=== PATIENT | male | born 1965 | race African-American/Black ===

== ENCOUNTER 2017-09-05 11:31 | Inpatient (IN) | payer OTHER ==
[2017-09-05 12:02] VITALS: BMI 21.3
--- NOTE | 2017-09-05 14:13 | HP ---
CIWA Score - CIWA Score Nausea/Vomitin Muscle Tremors: 3 Anxiety: 3 Agitation: 3 Paroxysmal Sweats: 2 Orientation: 0-Oriented Tacttile Disturbances: 1-Very Mild Itch/Numbness Auditory Disturbances: 1-Very Mild Visual Disturbances: 0-None Headache: 2-Mild CIWA-Ar Total Score: 18 Admission ROS BHS - HPI Chief Complaint: i need help to stop drinking alcohol Allergies/Adverse Reactions: Allergies Allergy/AdvReac Type Severity Reaction Status Date / Time No Known Allergies Allergy Verified 09/05/17 12:38 History of Present Illness: this 51 yers old male with alcohol dependence,seeking detox,withdrawal symptom, last detox in 2012 [place] nicotine dependence weight loss anxiety,depression,insomnia longest period of sobriety 1 year - Ebola screening Have you traveled outside of the country in the last 21 days: No Have you had contact with anyone from an Ebola affected area: No Have you been sick,other than usual withdrawal symptoms: No Do you have a fever: No - Review of Systems Constitutional: Loss of Appetite, Malaise, Night Sweats, Changes in sleep, Weakness, Unintentional Wgt. Loss EENT: reports: Tearing, Nose Congestion Respiratory: reports: No Symptoms reported Cardiac: reports: No Symptoms Reported GI: reports: Diarrhea, Nausea, Vomiting, Abdominal cramping : reports: No Symptoms Reported Musculoskeletal: reports: Back Pain, Muscle Pain Integumentary: reports: Dryness Hematology: reports: No Symptoms Reported Psychiatric: reports: No Sypmtoms Reported, Judgement Intact, Mood/Affect Appropiate, Orientated x3, Agitated, Anxious Patient History - Patient Medical History Hx Anemia: No Hx Asthma: No Hx Chronic Obstructive Pulmonary Disease (COPD): No Hx Cancer: No Hx Cardiac Disorders: No Hx Congestive Heart Failure: No Hx Hypertension: No Hx Hypercholesterolemia: No Hx Pacemaker: No HX Cerebrovascular Accident: No Hx Seizures: No Hx Dementia: No Hx Diabetes: No Hx Gastrointestinal Disorders: Yes (acid reflux no med) Hx Liver Disease: No Hx Genitourinary Disorders: No Hx Sexually Transmitted Disorders: No Hx Renal Disease (ESRD): No Hx Thyroid Disease: No Hx Human Immunodeficiency Virus (HIV): No (last 2016 negative) Hx Hepatitis C: No Hx Depression: Yes (anxiety) Hx Suicide Attempt: No Hx Bipolar Disorder: No Hx Schizophrenia: No Other Medical History: no suicidal,no homicidal,insomnia - Patient Surgical History Past Surgical History: No Hx Neurologic Surgery: No Hx Cataract Extraction: No Hx Cardiac Surgery: No Hx Lung Surgery: No Hx Breast Surgery: No Hx Breast Biopsy: No Hx Abdominal Surgery: No Hx Appendectomy: No Hx Cholecystectomy: No Hx Genitourinary Surgery: No Hx Section: No Hx Orthopedic Surgery: No Anesthesia Reaction: No - PPD History Previous Implant?: Yes Documented Results: Negative w/o proof Implanted On Prior [facility] Admission?: No PPD to be Administered?: Yes - Smoking Cessation Smoking history: Current every day smoker Have you smoked in the past 12 months: Yes Aproximately how many cigarettes per day: 20 Hx Chewing Tobacco Use: No Initiated information on smoking cessation: Yes 'Breaking Loose' booklet given: 09/05/17 - Substance & Tx. History Hx Alcohol Use: Yes Hx Substance Use: No Substance Use Type: Alcohol Hx Substance Use Treatment: Yes (2012) - Substances Abused Alcohol-beer/vodka Route: Oral Frequency: Daily Amount used: 2-6 pks./1 pt. Age of first use: 16 Date of Last Use: 09/04/17 Family Disease History - Family Disease History Family History: Denies Admission Physical Exam BHS - Vital Signs Vital Signs: Vital Signs - 24 hr 09/05/17 12:00 Temperature 97.8 F Pulse Rate 109 H Respiratory 18 Rate Blood Pressure 123/78 - Physical General Appearance: Yes: Moderate Distress, Tremorous, Irritable, Sweating, Anxious HEENTM: Yes: Normal ENT Inspection, FELIPE, Pharynx Normal Respiratory: Yes: Lungs Clear, Normal Breath Sounds, No Respiratory Distress Neck: Yes: Within Normal Limits, Supple, Trachea in good position Breast: Yes: Within Normal Limits Cardiology: Yes: Within Normal Limits, Regular Rhythm, Regular Rate, S1, S2 Abdominal: Yes: Within Normal Limits, Normal Bowel Sounds, Non Tender, Flat, Soft Genitourinary: Yes: Within Normal Limits Back: Yes: Muscle Spasm Musculoskeletal: Yes: Within Normal Limits, Back pain, Muscle Pain Extremities: Yes: Tremors Neurological: Yes: med spa manager II-XII NML intact, Alert, Motor Strength 5/5 Integumentary: Yes: Dry Lymphatic: Yes: Within Normal Limits - Diagnostic (1) Alcohol dependence with uncomplicated withdrawal Current Visit: Yes Status: Acute (2) Dehydration Current Visit: Yes Status: Acute (3) Syncope Current Visit: Yes Status: Acute (4) Nicotine dependence Current Visit: Yes Status: Acute Qualifiers: Nicotine product type: cigarettes Substance use status: uncomplicated Qualified Code(s): F17.210 - Nicotine dependence, cigarettes, uncomplicated (5) Weight loss Current Visit: Yes Status: Acute Cleared for Admission S - Detox or Rehab S Level of Care: Medically Managed Detox Regimen/Protocol: Librium BHS Breath Alcohol Content Breath Alcohol Content: 4 Urine Drug Screen - Results Drug Screen Negative: No
[2017-09-05] MEDS ORDERED: ACETAMINOPHEN 325 MG TABLET (FP) PO PRN (14:20)
[2017-09-05] MEDS ORDERED: guaiFENesin/D-METHORPHAN HB 10 ML UNIT-DOSE CUPS PO PRN (14:20)
[2017-09-05] MEDS ORDERED: MAGNESIUM HYDROX 2400MG/30ML ORAL SUSPENSION 30 ML CUP PO PRN (14:20)
[2017-09-05] MEDS ORDERED: MAG HYDROX/AL HYDROX/SIMETH 30 ML UNIT-DOSE CUP PO PRN (14:20)
[2017-09-05] MEDS ORDERED: NICOTINE POLACRILEX 2 MG GUM BUC PRN (14:20)
[2017-09-05] MEDS ORDERED: IBUPROFEN 400 MG TABLET (FP) PO PRN (14:20)
[2017-09-05] MEDS ORDERED: P-EPHED 60MG/TRIPROLIDI 2.5MG TABLET PO PRN (14:20)
[2017-09-05] MEDS ORDERED: MAGNESIUM CITRATE 300 ML BOTTLE PO PRN (14:20)
[2017-09-05] MEDS ORDERED: MENTHOL/PHENOL 1 EACH UD MM PRN (14:20)
[2017-09-05] MEDS ORDERED: LOPERAMIDE HCL 2 MG CAPSULE PO PRN (14:20)
[2017-09-05] MEDS: chlordiazePOXIDE HCL 25 MG CAPSULE PO PRN (15:33)
--- NOTE | 2017-09-05 16:15 | CONSULT ---
[facility] Psychiatric Consult - Data Date of interview: 09/05/17 Admission source: [facility] Identifying data: Patient is a 51 year old male, single, father of five, domiciled (lives with partner), and is currently unemployed. This is one of multiple admissions for patient. Pt. admitted to for alcohol dependence. Substance Abuse History: Smoking Cessation. Smoking history: Current every day smoker. Have you smoked in the past 12 months: Yes. Aproximately how many cigarettes per day: 20. Hx Chewing Tobacco Use: No. Initiated information on smoking cessation: Yes. 'Breaking Loose' booklet given: 09/05/17. - Substance & Tx. History. Hx Alcohol Use: Yes. Hx Substance Use: No. Substance Use Type : Alcohol. Hx Substance Use Treatment: Yes (2012). - Substances Abused. Alcohol-beer/vodka. Route: Oral. Frequency: Daily. Amount used: 2 -6 pks./1 pt. Age of first use: 16. Date of Last Use: 09/04/17 Medical History: Acid reflux Psychiatric History: Patient's first encounter with a psychiatrist was at the age of 31 at [facility]. Pt. states he was taken to [facility] emergency room after becoming intoxicated and menancing. Pt. was admitted to [facility] and diagnosed with bipolar disorder. Pt. was started on seroquel but reports only taking the medication during hospitalization. Patient's second hospitalization was two months ago at [facility] after becoming intoxicated and acting erractic. Pt. reports nonadhernece to outpatient care. Pt. denies h/o suicide attempt. Physical/Sexual Abuse/Trauma History: Denies. Mental Status Exam - Mental Status Exam Alert and Oriented to: Time, Place, Person Cognitive Function: Good Patient Appearance: Well Groomed Mood: Hopeful, Euthymic Affect: Mood Congruent Patient Behavior: Cooperative Speech Pattern: Pressured Voice Loudness: Normal Thought Process: Intact, Goal Oriented Thought Disorder: Not Present Hallucinations: Denies Suicidal Ideation: Denies Homicidal Ideation: Denies Insight/Judgement: Poor Sleep: Poorly Muscle strength/Tone: Normal Gait/Station: Normal Psychiatric Findings - Problem List ([place] 1, 2,3) (1) Substance-induced sleep disorder Current Visit: Yes Status: Acute (2) Alcohol dependence with uncomplicated withdrawal Current Visit: Yes Status: Acute (3) Alcohol-induced mood disorder Current Visit: Yes Status: Acute (4) Nicotine dependence Current Visit: Yes Status: Acute - Initial Treatment Plan Initial Treatment Plan: Psychoeducation provided. Detoxification in progress. Seroquel 50mg qhs. Benefits and side effects discussed. Verbal consent given.
[2017-09-05] MEDS: chlordiazePOXIDE HCL 25 MG CAPSULE PO SCH ×2 (17:51→23:32)
[2017-09-05] MEDS ORDERED: MELATONIN 5 MG TABLETS PO PRN (22:00)
[2017-09-05] MEDS: QUEtiapine FUMARATE 50 MG TABLET PO SCH (23:30)
[2017-09-05] MEDS: THIAMINE HCL 100 MG TABLET (FP) PO SCH (23:31)
[2017-09-06] MEDS: hydrOXYzine PAMOATE 50 MG CAPSULE (FP) PO PRN ×2 (01:06→22:46)
[2017-09-06] MEDS: chlordiazePOXIDE HCL 25 MG CAPSULE PO PRN (01:06)
[2017-09-06] MEDS: chlordiazePOXIDE HCL 25 MG CAPSULE PO SCH ×4 (05:31→22:46)
[2017-09-06 10:10] LABS: HEMATOCRIT 40.5 % (35.4-49); HEMOGLOBIN 13.6 GM/dL (11.7-16.9); MCH 32.1 pg (25.7-33.7); MCHC 33.7 g/dl (32.0-35.9); MEAN CELL VOLUME 95.4 fl (80-96); MEAN PLT VOLUME 8.8 fl (7.5-11.1); PLATELET COUNT 218 K/MM3 (134-434); RBC 4.25 M/mm3 (4.00-5.60); RDW 12.8 % (11.9-15.9)
[2017-09-06 10:40] LABS: CHLORIDE 103 mmol/L (98-107); POTASSIUM 4.1 mmol/L (3.5-5.1); SODIUM 138 mmol/L (136-145)
[2017-09-06 10:48] LABS: ALBUMIN 3.9 g/dl (3.4-5.0); ALK PHOS 63 U/L (45-117); ANION GAP 6 (8-16); BILIRUBIN,TOTAL 0.4 mg/dL (0.2-1.0); BLOOD UREA NITROGEN 20 mg/dL (7-18); CALCIUM 9.4 mg/dL (8.5-10.1); CO2 29 mmol/L (21-32); CREATININE 1.1 mg/dL (0.7-1.3); GLUCOSE,RANDOM 103 mg/dL (74-106); SGOT/AST 48 U/L (15-37); SGPT/ALT 47 U/L (12-78); TOT PROT 8.2 g/dl (6.4-8.2)
[2017-09-06 10:51] LABS: URINE APPEARANCE TURBID; URINE BILIRUBIN NEGATIVE (<2.0 mg/dL); URINE COLOR YELLOW; URINE GLUCOSE (UA) NEGATIVE (NEGATIVE); URINE KETONE NEGATIVE (NEGATIVE); URINE LEUK ESTERASE NEGATIVE (NEGATIVE); URINE NITRITE NEGATIVE (NEGATIVE); URINE UROBILINOGEN NEGATIVE mg/dL (0.2-1.0)
[2017-09-06 10:55] LABS: URINE PROTEIN 1+ (NEGATIVE)
[2017-09-06 10:58] LABS: URINE HYALINE CAST 11 /lpf; URINE MUCUS FEW
[2017-09-06] MEDS: PRENATAL VITAMINS W/ FOLIC ACID TABLET (FP) PO SCH (10:58)
[2017-09-06] MEDS: NICOTINE 21 MG/24 HOURS TOPICAL PATCH TD SCH (11:00)
--- NOTE | 2017-09-06 11:10 | PN ---
S CIWA - CIWA Score Nausea/Vomitin Muscle Tremors: 2 Anxiety: 2 Agitation: 2 Paroxysmal Sweats: 1-Minimal Palms Moist Orientation: 0-Oriented Tacttile Disturbances: 2-Mild Itch/Numbness/Burn Auditory Disturbances: 0-None Visual Disturbances: 0-None Headache: 2-Mild CIWA-Ar Total Score: 13 BHS Progress Note (SOAP) Subjective: Back pain, sleeplessness, irritability and anxiety Objective: 09/06/17 11:09 Vital Signs 09/06/17 09/06/17 09/06/17 03:30 06:00 10:13 Temperature 97.3 F L 98.8 F Pulse Rate 73 78 Respiratory 18 18 18 Rate Blood Pressure 109/59 103/50 Laboratory Last Values WBC 6.0 K/mm3 (4.0-10.0) 09/06/17 05:30 RBC 4.25 M/mm3 (4.00-5.60) 09/06/17 05:30 Hgb 13.6 GM/dL (11.7-16.9) 09/06/17 05:30 Hct 40.5 % (35.4-49) 09/06/17 05:30 MCV 95.4 fl (80-96) 09/06/17 05:30 MCH 32.1 pg (25.7-33.7) 09/06/17 05:30 MCHC 33.7 g/dl (32.0-35.9) 09/06/17 05:30 RDW 12.8 % (11.9-15.9) 09/06/17 05:30 Plt Count 218 K/MM3 (134-434) 09/06/17 05:30 MPV 8.8 fl (7.5-11.1) 09/06/17 05:30 Sodium 138 mmol/L (136-145) 09/06/17 05:30 Potassium 4.1 mmol/L (3.5-5.1) 09/06/17 05:30 Chloride 103 mmol/L (98-107) 09/06/17 05:30 Carbon Dioxide 29 mmol/L (21-32) 09/06/17 05:30 Anion Gap 6 (8-16) L 09/06/17 05:30 BUN 20 mg/dL (7-18) H 09/06/17 05:30 Creatinine 1.1 mg/dL (0.7-1.3) 09/06/17 05:30 Creat Clearance w eGFR > 60 (>60) 09/06/17 05:30 Random Glucose 103 mg/dL (74-106) 09/06/17 05:30 Calcium 9.4 mg/dL (8.5-10.1) 09/06/17 05:30 Total Bilirubin 0.4 mg/dL (0.2-1.0) 09/06/17 05:30 AST 48 U/L (15-37) H 09/06/17 05:30 ALT 47 U/L (12-78) 09/06/17 05:30 Alkaline Phosphatase 63 U/L (45-117) 09/06/17 05:30 Total Protein 8.2 g/dl (6.4-8.2) 09/06/17 05:30 Albumin 3.9 g/dl (3.4-5.0) 09/06/17 05:30 Urine Color Yellow 09/06/17 05:50 Urine Appearance Turbid 09/06/17 05:50 Urine pH 5.0 (5.0-8.0) 09/06/17 05:50 Ur Specific [place] 1.035 (1.001-1.035) 09/06/17 05:50 Urine Protein 1+ (NEGATIVE) H 09/06/17 05:50 Urine Glucose (UA) Negative (NEGATIVE) 09/06/17 05:50 Urine Ketones Negative (NEGATIVE) 09/06/17 05:50 Urine Blood 1+ (NEGATIVE) H 09/06/17 05:50 Urine Nitrite Negative (NEGATIVE) 09/06/17 05:50 Urine Bilirubin Negative (<2.0 mg/dL) 09/06/17 05:50 Urine Urobilinogen Negative mg/dL (0.2-1.0) 09/06/17 05:50 Ur Leukocyte Esterase Negative (NEGATIVE) 09/06/17 05:50 Urine WBC (Auto) None /hpf (3-5) 09/06/17 05:50 Urine RBC (Auto) 3 /hpf (0-3) 09/06/17 05:50 Hyaline Casts 11 /lpf 09/06/17 05:50 Urine Mucus Few 09/06/17 05:50 Labs noted Assessment: 07/28/18 11:09 Withdrawal sx Plan: Continue detox
[2017-09-06] MEDS: QUEtiapine FUMARATE 50 MG TABLET PO SCH (22:46)
[2017-09-06] MEDS: THIAMINE HCL 100 MG TABLET (FP) PO SCH (22:46)
[2017-09-07] MEDS: chlordiazePOXIDE HCL 25 MG CAPSULE PO SCH ×2 (05:34→10:39)
[2017-09-07] MEDS: NICOTINE 21 MG/24 HOURS TOPICAL PATCH TD SCH (10:39)
[2017-09-07] MEDS: PRENATAL VITAMINS W/ FOLIC ACID TABLET (FP) PO SCH (10:39)
--- NOTE | 2017-09-07 13:05 | PN ---
S CIWA - CIWA Score Nausea/Vomitin-No Nausea/No Vomiting Muscle Tremors: 3 Anxiety: 3 Agitation: 3 Paroxysmal Sweats: 1-Minimal Palms Moist Orientation: 0-Oriented Tacttile Disturbances: 2-Mild Itch/Numbness/Burn Auditory Disturbances: 0-None Visual Disturbances: 0-None Headache: 0-None Present CIWA-Ar Total Score: 12 BHS Progress Note (SOAP) Subjective: sweat tremor restlessness irritable anxiety Objective: 09/07/17 13:08 Vital Signs Temperature 97.0 F L 09/07/17 06:00 Pulse Rate 70 09/07/17 06:00 Respiratory Rate 18 09/07/17 06:00 Blood Pressure 100/58 09/07/17 06:00 O2 Sat by Pulse Oximetry (%) Laboratory Last Values WBC 6.0 K/mm3 (4.0-10.0) 09/06/17 05:30 RBC 4.25 M/mm3 (4.00-5.60) 09/06/17 05:30 Hgb 13.6 GM/dL (11.7-16.9) 09/06/17 05:30 Hct 40.5 % (35.4-49) 09/06/17 05:30 MCV 95.4 fl (80-96) 09/06/17 05:30 MCH 32.1 pg (25.7-33.7) 09/06/17 05:30 MCHC 33.7 g/dl (32.0-35.9) 09/06/17 05:30 RDW 12.8 % (11.9-15.9) 09/06/17 05:30 Plt Count 218 K/MM3 (134-434) 09/06/17 05:30 MPV 8.8 fl (7.5-11.1) 09/06/17 05:30 Sodium 138 mmol/L (136-145) 09/06/17 05:30 Potassium 4.1 mmol/L (3.5-5.1) 09/06/17 05:30 Chloride 103 mmol/L (98-107) 09/06/17 05:30 Carbon Dioxide 29 mmol/L (21-32) 09/06/17 05:30 Anion Gap 6 (8-16) L 09/06/17 05:30 BUN 20 mg/dL (7-18) H 09/06/17 05:30 Creatinine 1.1 mg/dL (0.7-1.3) 09/06/17 05:30 Creat Clearance w eGFR > 60 (>60) 09/06/17 05:30 Random Glucose 103 mg/dL (74-106) 09/06/17 05:30 Calcium 9.4 mg/dL (8.5-10.1) 09/06/17 05:30 Total Bilirubin 0.4 mg/dL (0.2-1.0) 09/06/17 05:30 AST 48 U/L (15-37) H 09/06/17 05:30 ALT 47 U/L (12-78) 09/06/17 05:30 Alkaline Phosphatase 63 U/L (45-117) 09/06/17 05:30 Total Protein 8.2 g/dl (6.4-8.2) 09/06/17 05:30 Albumin 3.9 g/dl (3.4-5.0) 09/06/17 05:30 Urine Color Yellow 09/06/17 05:50 Urine Appearance Turbid 09/06/17 05:50 Urine pH 5.0 (5.0-8.0) 09/06/17 05:50 Ur Specific [place] 1.035 (1.001-1.035) 09/06/17 05:50 Urine Protein 1+ (NEGATIVE) H 09/06/17 05:50 Urine Glucose (UA) Negative (NEGATIVE) 09/06/17 05:50 Urine Ketones Negative (NEGATIVE) 09/06/17 05:50 Urine Blood 1+ (NEGATIVE) H 09/06/17 05:50 Urine Nitrite Negative (NEGATIVE) 09/06/17 05:50 Urine Bilirubin Negative (<2.0 mg/dL) 09/06/17 05:50 Urine Urobilinogen Negative mg/dL (0.2-1.0) 09/06/17 05:50 Ur Leukocyte Esterase Negative (NEGATIVE) 09/06/17 05:50 Urine WBC (Auto) None /hpf (3-5) 09/06/17 05:50 Urine RBC (Auto) 3 /hpf (0-3) 09/06/17 05:50 Hyaline Casts 11 /lpf 09/06/17 05:50 Urine Mucus Few 07/28/18 05:50 RPR Titer Nonreactive (NONREACTIVE) 09/06/17 05:30 lab noted Assessment: 09/07/17 13:08 withdrawal sx Plan: continue detox
[2017-09-07] MEDS: chlordiazePOXIDE 5 MG CAPSULE PO SCH (18:41)
[2017-09-08] MEDS: QUEtiapine FUMARATE 50 MG TABLET PO SCH ×2 (00:03→22:13)
[2017-09-08] MEDS: chlordiazePOXIDE 5 MG CAPSULE PO SCH ×3 (00:04→10:44)
[2017-09-08] MEDS: THIAMINE HCL 100 MG TABLET (FP) PO SCH ×2 (00:04→22:13)
[2017-09-08] MEDS: PRENATAL VITAMINS W/ FOLIC ACID TABLET (FP) PO SCH (10:44)
[2017-09-08] MEDS: NICOTINE 21 MG/24 HOURS TOPICAL PATCH TD SCH (10:45)
--- NOTE | 2017-09-08 11:10 | EKG ---
Test Reason : Blood Pressure : / mmHG Vent. Rate : 089 BPM Atrial Rate : 089 BPM P-R Int : 140 ms QRS Dur : 084 ms QT Int : 348 ms P-R-T Axes : 073 068 034 degrees QTc Int : 423 ms NORMAL SINUS RHYTHM POSSIBLE LEFT ATRIAL ENLARGEMENT BORDERLINE ECG NO PREVIOUS ECGS AVAILABLE Confirmed by EMMANUEL BLANKENSHIP, CELESTE ([id number]) on 09/08/2017 11:10:13 AM Referred By: Confirmed By:CELESTE BENITEZ MD
--- NOTE | 2017-09-08 12:36 | PN ---
S Progress Note (SOAP) Subjective: alert,irritable,anxious,interrupted sleep Objective: 09/08/17 12:35 Vital Signs Temperature 97.7 F 09/08/17 09:00 Pulse Rate 74 09/08/17 09:00 Respiratory Rate 18 09/08/17 09:00 Blood Pressure 113/78 09/08/17 09:00 O2 Sat by Pulse Oximetry (%) Assessment: 09/08/17 12:35 withdrawal symptom Plan: continue detox,discharge in am
[2017-09-08] MEDS: chlordiazePOXIDE HCL 10 MG CAPSULE PO SCH ×2 (17:37→22:13)
[2017-09-09] MEDS: chlordiazePOXIDE HCL 10 MG CAPSULE PO SCH ×2 (06:42→10:27)
[2017-09-09 09:48] VITALS: BP 112/72; PULSE 80; TEMP 96.4
--- NOTE | 2017-09-09 09:53 | PN ---
S Progress Note (SOAP) Subjective: alert,no complaint Objective: 09/09/17 09:49 Vital Signs Temperature 96.4 F L 09/09/17 09:47 Pulse Rate 80 09/09/17 09:47 Respiratory Rate 18 09/09/17 09:47 Blood Pressure 112/72 09/09/17 09:47 O2 Sat by Pulse Oximetry (%) Assessment: 09/09/17 09:49 detox completed,no withdrawal symptom Plan: discharge today,follow up with [facility] as arrangement
--- NOTE | 2017-09-09 09:59 | DS ---
[facility] Summary Admission Date: 09/05/17 Discharge Date: 09/09/17 - History Present History: Alcohol Dependence Additional Comments: follow up with after care program as arrangement Pertinent Past History: nicotine dependence - Physical Exam Results Vital Signs: Vital Signs Temperature 96.4 F L 09/09/17 09:47 Pulse Rate 80 09/09/17 09:47 Respiratory Rate 18 09/09/17 09:47 Blood Pressure 112/72 09/09/17 09:47 O2 Sat by Pulse Oximetry (%) Pertinent Admission Physical Exam Findings: withdrawal signs and symptom Vital Signs Temperature 96.4 F L 09/09/17 09:47 Pulse Rate 80 09/09/17 09:47 Respiratory Rate 18 09/09/17 09:47 Blood Pressure 112/72 09/09/17 09:47 O2 Sat by Pulse Oximetry (%) Laboratory Last Values WBC 6.0 K/mm3 (4.0-10.0) 09/06/17 05:30 RBC 4.25 M/mm3 (4.00-5.60) 09/06/17 05:30 Hgb 13.6 GM/dL (11.7-16.9) 09/06/17 05:30 Hct 40.5 % (35.4-49) 09/06/17 05:30 MCV 95.4 fl (80-96) 09/06/17 05:30 MCH 32.1 pg (25.7-33.7) 09/06/17 05:30 MCHC 33.7 g/dl (32.0-35.9) 09/06/17 05:30 RDW 12.8 % (11.9-15.9) 09/06/17 05:30 Plt Count 218 K/MM3 (134-434) 09/06/17 05:30 MPV 8.8 fl (7.5-11.1) 09/06/17 05:30 Sodium 138 mmol/L (136-145) 09/06/17 05:30 Potassium 4.1 mmol/L (3.5-5.1) 09/06/17 05:30 Chloride 103 mmol/L (98-107) 09/06/17 05:30 Carbon Dioxide 29 mmol/L (21-32) 09/06/17 05:30 Anion Gap 6 (8-16) L 09/06/17 05:30 BUN 20 mg/dL (7-18) H 09/06/17 05:30 Creatinine 1.1 mg/dL (0.7-1.3) 09/06/17 05:30 Creat Clearance w eGFR > 60 (>60) 09/06/17 05:30 Random Glucose 103 mg/dL (74-106) 09/06/17 05:30 Calcium 9.4 mg/dL (8.5-10.1) 09/06/17 05:30 Total Bilirubin 0.4 mg/dL (0.2-1.0) 09/06/17 05:30 AST 48 U/L (15-37) H 09/06/17 05:30 ALT 47 U/L (12-78) 09/06/17 05:30 Alkaline Phosphatase 63 U/L (45-117) 09/06/17 05:30 Total Protein 8.2 g/dl (6.4-8.2) 09/06/17 05:30 Albumin 3.9 g/dl (3.4-5.0) 09/06/17 05:30 Urine Color Yellow 09/06/17 05:50 Urine Appearance Turbid 09/06/17 05:50 Urine pH 5.0 (5.0-8.0) 09/06/17 05:50 Ur Specific [place] 1.035 (1.001-1.035) 09/06/17 05:50 Urine Protein 1+ (NEGATIVE) H 09/06/17 05:50 Urine Glucose (UA) Negative (NEGATIVE) 09/06/17 05:50 Urine Ketones Negative (NEGATIVE) 09/06/17 05:50 Urine Blood 1+ (NEGATIVE) H 09/06/17 05:50 Urine Nitrite Negative (NEGATIVE) 09/06/17 05:50 Urine Bilirubin Negative (<2.0 mg/dL) 09/06/17 05:50 Urine Urobilinogen Negative mg/dL (0.2-1.0) 09/06/17 05:50 Ur Leukocyte Esterase Negative (NEGATIVE) 09/06/17 05:50 Urine WBC (Auto) None /hpf (3-5) 09/06/17 05:50 Urine RBC (Auto) 3 /hpf (0-3) 09/06/17 05:50 Hyaline Casts 11 /lpf 09/06/17 05:50 Urine Mucus Few 09/06/17 05:50 RPR Titer Nonreactive (NONREACTIVE) 09/06/17 05:30 - Treatment Hospital Course: Detox Protocol Followed, Detoxed Safely, Responded well, Discharged Condition Good, Rehab Referral Accepted Patient has Accepted a Re[facility] Referral [facility]: [facility] - Medication Discharge Medications: Ambulatory Orders NK [No Known Home Medication] 09/05/17 - Diagnosis (1) Alcohol dependence with uncomplicated withdrawal Current Visit: Yes Status: Acute (2) Dehydration Current Visit: Yes Status: Acute (3) Syncope Current Visit: Yes Status: Acute (4) Nicotine dependence Current Visit: Yes Status: Acute Qualifiers: Nicotine product type: cigarettes Substance use status: uncomplicated Qualified Code(s): F17.210 - Nicotine dependence, cigarettes, uncomplicated (5) Weight loss Current Visit: Yes Status: Acute - AMA Did Patient Leave Against Medical Advice: No
[2017-09-09] MEDS: PRENATAL VITAMINS W/ FOLIC ACID TABLET (FP) PO SCH (10:26)
[2017-09-09] MEDS: NICOTINE 21 MG/24 HOURS TOPICAL PATCH TD SCH (10:27)
== END 2017-09-09 13:03 | disposition other institution (70) | DRG 775 ==
LOC: YASAS 11:31 → Y6N 14:31
PROVIDERS: ADMIT Surgery; ATTEND Surgery
PROC: HZ2ZZZZ Detoxification Services for Substance Abuse Treatment (ICD-10-PCS; principal; 2017-09-05)
DX: F10.230 Alcohol dependence with withdrawal, uncomplicated (principal); F17.210 Nicotine dependence, cigarettes, uncomplicated; F10.24 Alcohol dependence with alcohol-induced mood disorder; F19.282 Other psychoactive substance dependence with psychoactive substance-induced sleep disorder; E86.0 Dehydration; R55 Syncope and collapse; R63.4 Abnormal weight loss; Z68.21 Body mass index [BMI] 21.0-21.9, adult; K21.9 Gastro-esophageal reflux disease without esophagitis
CPT/HCPCS: 36415; 80053; 81003; 81015; 85027; 86593; 93005; 93010